=== PATIENT | male | born 1940 | race Caucasian/White ===

== ENCOUNTER 2018-12-16 09:20 | Emergency (ER) | payer OTHER ==
[2018-12-16 09:47] VITALS: BP 147/74
--- NOTE | 2018-12-16 10:06 | UC ---
Throat Pain/Nasal Carlo HPI - HPI Summary HPI Summary: 78-year-old male presents with one-week history of nasal congestion, yellow nasal drainage, maxillary sinus pain and pressure, and occasional nonproductive cough.. States he has a history of frequent sinus infections. Denies fever, chills, ear pain, sore throat, chest pain, or shortness of breath. - History of Current Complaint Chief Complaint: UCRespiratory Stated Complaint: COUGH,CONGESTION Time Seen by Provider: 12/16/18 10:03 Hx Obtained From: Patient Pain Intensity: 6 - Allergies/Home Medications Allergies/Adverse Reactions: Allergies Allergy/AdvReac Type Severity Reaction Status Date / Time azithromycin Allergy Severe joint Verified 12/16/18 09:35 swelling and pain lisinopril Allergy Severe mouth and Verified 12/16/18 09:35 facial swelling losartan Allergy Severe a-fib Verified 12/16/18 09:35 clindamycin Allergy Unknown Rash Verified 12/16/18 09:35 Home Medications: Home Medications Calcium Carbonate/Vitamin D3 [Calcium 500 + Vit D Caplet] 1 each PO DAILY [History Confirmed 12/16/18] Fluticasone NASAL SPRAY 50MCG* [Flonase NASAL SPRAY 50MCG*] 2 spray BOTH NARES DAILY PRN 12/16/18 [History Confirmed 12/16/18] Glucosam/Chond/Collagen/Hyalur [Glucosamine Chondroitin/C] 1 cap PO BID [History Confirmed 12/16/18] Hydrochlorothiazide TAB* [Hydrodiuril TAB*] 12.5 mg PO DAILY 12/16/18 [History Confirmed 12/16/18] Ipratropium Br (Nf)0.03% Nasal [Ipratropium [place]] 0.03 % NA DAILY 12/16/18 [ History Confirmed 12/16/18] Multivitamin [Multivitamins] 1 cap PO DAILY 12/16/18 [History Confirmed 12/16/18 ] amLODIPine TAB* [Norvasc 5 mg TAB*] 5 mg PO DAILY 12/16/18 [History Confirmed ] PMH/Surg Hx/FS Hx/Imm Hx Cardiovascular History: Hypertension - Surgical History Surgical History: Yes Surgery Procedure, Year, and Place: LEFT AND RIGHT TOTAL HIP, RECONSTRUCTION. KNEE ARTHROSCOPY - Family History Known Family History: Positive: Non-Contributory - Social History Occupation: Retired Lives: With Family Alcohol Use: None Substance Use Type: None Smoking Status (MU): Never Smoked Tobacco Review of Systems All Other Systems Reviewed And Are Negative: Yes Constitutional: Negative: Fever, Chills Skin: Negative: Rash Eyes: Negative: Drainage, Eye Redness ENT: Positive: Nasal Discharge, Sinus Congestion, Sinus Pain/Tenderness. Negative: Sore Throat, Ear Ache Respiratory: Positive: Cough. Negative: Shortness Of Breath Cardiovascular: Negative: Palpitations, Chest Pain Gastrointestinal: Negative: Abdominal Pain, Vomiting, Diarrhea, Nausea Genitourinary: Positive: Negative Musculoskeletal: Positive: Negative Neurological: Positive: Negative Is Patient Immunocompromised?: No Physical Exam - Summary Physical Exam Summary: GENERAL APPEARANCE: Well developed, well nourished, alert and cooperative, and appears to be in no acute distress. EYES: Conjunctiva clear. No drainage. Vision is grossly intact. EARS: External auditory canals and tympanic membranes clear, hearing grossly intact. NOSE: Mild-moderate nasal congestion with mucosal erythema and edema. No nasal discharge. Maxillary sinus tenderness with percussion. THROAT: Mild pharyngeal erythema with cobblestoning. No tonsilar inflammation, swelling, exudate, or lesions. Uvula midline. NECK: Neck supple, non-tender without lymphadenopathy. CARDIAC: Normal S1 and S2. No S3, S4 or murmurs. Rhythm is regular. There is no peripheral edema, cyanosis or pallor. Extremities are warm and well perfused. Capillary refill is less than 2 seconds. Peripheral pulses intact. LUNGS: Clear to auscultation without rales, rhonchi, wheezing or diminished breath sounds. ABDOMEN: Positive bowel sounds. Soft, nondistended, nontender. No guarding or rebound. No masses or hepatosplenomegally. MUSKULOSKELETAL: ROM intact to all extremities. No joint erythema or tenderness. Normal muscular development. Normal gait. SKIN: Skin normal color, texture and turgor with no lesions or eruptions. Triage Information Reviewed: Yes Vital Signs: Initial Vital Signs Temp 98.4 F 12/16/18 09:41 Pulse 76 12/16/18 09:41 Resp 18 12/16/18 09:41 BP 147/74 12/16/18 09:41 Pulse Ox 98 12/16/18 09:41 Vital Signs Reviewed: Yes Throat Pain/Nasal Course/Dx - Course Course Of Treatment: 78-year-old male presents with one-week history of nasal congestion, yellow nasal drainage, maxillary sinus pain and pressure, and occasional nonproductive cough.. States he has a history of frequent sinus infections. Denies fever, chills, ear pain, sore throat, chest pain, or shortness of breath. Afebrile. Vital signs stable. Exam reveals an older adult male in no acute distress with mild to moderate nasal congestion, maxillary sinus tenderness, mild pharyngeal erythema with cobblestoning, and otherwise unremarkable exam. Considering his history of recurrent sinus infections we will treat with Augmentin 875 mg twice a day 10 days as well as symptomatic treatment. He is to follow-up with his primary care provider in 7 days if symptoms do not improve. Anticipatory guidance and warning symptoms were reviewed with the patient. Verbalizes understanding and agrees with plan of care. - Differential Dx/Diagnosis Differential Diagnosis/HQI/PQRI: Sinusitis, URI Provider Diagnosis: Acute maxillary sinusitis Discharge - Sign-Out/Discharge Documenting (check all that apply): Patient Departure All imaging exams completed and their final reports reviewed: No Studies - Discharge Plan Condition: Stable Disposition: HOME Prescriptions: Amoxicillin/Clavulanate TAB* [Augmentin TAB 875*] 875 mg PO BID #20 tab Patient Education Materials: Sinusitis (ED) Referrals: Linda Rodriguez MD [Primary Care Provider] - 7 Days Additional Instructions: Your history and exam are consistent with a sinus infection. We will start you on an antibiotic to treat for the infection. Start Augmentin 1 tab twice a day for 10 days. Take with food to avoid upset stomach. Be sure to finish the entire course even if feeling better. Drink plenty of fluids to avoid dehydration especially if you are running any fever. Use a saline rinse kit such as Neti Pot or NeilMed at least twice a day to help thin secretions and promote drainage of the sinuses. Continue to use your fluticasone (Flonase) nasal spray 2 sprays each nostril once daily. Take over the counter acetaminophen (Tylenol) or ibuprofen (Advil, Motrin) according to directions as needed for pain or fever. Follow up with your primary care provider in 7 days if symptoms persist. Seek immediate medical attention in the emergency room if you have fever greater than 100.5 F despite taking acetaminophen or ibuprofen, have chest pain , difficulty breathing, are unable to swallow, or have any worsening of symptoms. - Billing Disposition and Condition Condition: STABLE Disposition: Home - Attestation Statements Provider Attestation: Per institutional requirements, I have reviewed the chart, however, I was not consulted specifically or made aware of this patient by the midlevel provider. I did not personally evaluate, interact with , or disposition this patient.
== END 2018-12-16 10:20 | disposition home or self-care (01) ==
LOC: UCCORT 09:20
DX: J01.00 Acute maxillary sinusitis, unspecified (principal); I10 Essential (primary) hypertension; Z88.1 Allergy status to other antibiotic agents; Z88.8 Allergy status to other drugs, medicaments and biological substances; Z79.899 Other long term (current) drug therapy
CPT/HCPCS: 99202; G0463